=== PATIENT | male | born 1985 | race Caucasian/White ===

== ENCOUNTER 2017-01-02 14:57 | Emergency (ER) | payer OTHER ==
[~2017-01-02 14:57] MED LIST: ALPRAZOLAM PO; AMOXICILLIN500 M1 PO; DICLOFENAC PO; IBUPROFEN PO; PREDNISONE PO
== END 2017-01-02 14:59 | disposition left against medical advice (07) ==
LOC: CED 14:57
DX: T40.1X1A Poisoning by heroin, accidental (unintentional), initial encounter (principal); F41.9 Anxiety disorder, unspecified; F98.8 Other specified behavioral and emotional disorders with onset usually occurring in childhood and adolescence; Z98.890 Other specified postprocedural states; Y92.9 Unspecified place or not applicable
CPT/HCPCS: 99282